=== PATIENT | female | born 1935 | race Caucasian/White ===

== ENCOUNTER 2022-04-04 16:14 | Inpatient (IN) | payer OTHER, MEDICAID ==
[~2022-04-04] VITALS: Ht 149.9 cm; Wt 64.5 kg
[~2022-04-04 16:14] MED LIST: ACYC5OIN; AMITRIPTYLLINE PO; CAPT25TA5; CAPT25TA5 PO; FER325T PO; FLU05NSL; GEMF-19 PO; HYDRCRY2; KLOR CON PO; METO1TAB9; OMEP20TA37 PO; PREMARIN 0.625 MG; [UNRECOGNIZED DRUG - OTHER]
[2022-04-04 17:00] LABS: Basophils # (auto) 0.1 10 ^3/uL (0-0.2); Basophils % (auto) 0.4 % (0.0-2.0); Eosinophils # (auto) 0.1 10 ^3/uL (0-0.8); Eosinophils % (auto) 0.5 % (0.0-7.0); Hematocrit 36.9 % (36.0-46.0); Lymphocytes # (auto) 1.9 10 ^3/uL (0.4-5.4); Lymphocytes % (auto) 15.6 % (10.0-50.0); Mean Corpuscular Hemoglobin 30.5 pg (28.0-32.0); Mean Corpuscular Hgb Conc. 32.4 g/dL (32.0-36.0); Mean Corpuscular Volume 94.3 fL (80.0-100.0); Monocytes # (auto) 0.8 10 ^3/uL (0-1.3); Monocytes % (auto) 6.4 % (0.0-12.0); Neutrophils # (auto) 9.2 10 ^3/uL (1.6-8.6); Neutrophils % (auto) 77.1 % (37.0-80.0); Nucleated Red Blood Cells % 0.1 %; Red Blood Cells 3.92 10^6/uL (4.0-5.20); Red Cell Distribution Width 13.7 % (11.8-14.3)
[2022-04-04 17:20] LABS: Albumin 3.7 g/dL (3.4-5.0); BUN/Creatinine Ratio 31.8; Calcium 9.1 mg/dL (8.5-10.1); Magnesium 2.3 mg/dL (1.6-2.6); Potassium 4.7 mmol/L (3.5-5.1)
[2022-04-04 17:23] LABS: Bilirubin, Total 0.5 mg/dL (0.2-1.0); Total Protein 6.7 g/dL (6.4-8.2)
[2022-04-04] MEDS ORDERED: GLUCAGON HYDROCHLORIDE (RDNA) 1 MG VIAL IV ONE (17:30)
[2022-04-04 20:58] LABS: Urine Bacteria NONE SEEN /hpf (None Seen); Urine Blood Negative /uL (Negative); Urine Specific Gravity 1.009 (1.001-1.035); Urine WBC 3 /hpf (0 - 5)
[2022-04-05] VITALS (31 sets, daily range): BP systolic 114–171; BP diastolic 40–67
[2022-04-05] MEDS ORDERED: ONDANSETRON HCL 4 MG/2 ML VIAL IV PRN (00:15)
[2022-04-05] MEDS ORDERED: MORPHINE SULFATE INJ 2 MG/ml SYRG IV PRN (00:15)
[2022-04-05] MEDS ORDERED: hydrALAZINE HCL 20 MG/ML VL IV PRN (00:15)
[2022-04-05] MEDS ORDERED: NITROGLYCERIN 0.4 MG SL TAB SL PRN (00:15)
[2022-04-05] MEDS ORDERED: GLUCAGON HYDROCHLORIDE (RDNA) 1 MG VIAL IV ONE (09:00)
[2022-04-05] MEDS: TRIAMTERENE/HCTZ 37.5/25 MG CAP/TAB PO SCH ×2 (09:58→10:06)
[2022-04-05] MEDS: ENOXAPARIN SOD 30 MG/0.3 ML SYRINGE SC SCH (10:00)
[2022-04-05 13:18] LABS: Basophils # (auto) 0.1 10 ^3/uL (0-0.2); Basophils % (auto) 0.6 % (0.0-2.0); Eosinophils # (auto) 0 10 ^3/uL (0-0.8); Eosinophils % (auto) 0.2 % (0.0-7.0); Hematocrit 38.8 % (36.0-46.0); Hemoglobin 13.3 g/dL (12.2-16.2); Lymphocytes # (auto) 1.2 10 ^3/uL (0.4-5.4); Lymphocytes % (auto) 11.9 % (10.0-50.0); Mean Corpuscular Hemoglobin 30.9 pg (28.0-32.0); Mean Corpuscular Hgb Conc. 34.2 g/dL (32.0-36.0); Mean Corpuscular Volume 90.3 fL (80.0-100.0); Monocytes # (auto) 0.4 10 ^3/uL (0-1.3); Monocytes % (auto) 3.9 % (0.0-12.0); Neutrophils # (auto) 8.6 10 ^3/uL (1.6-8.6); Neutrophils % (auto) 83.4 % (37.0-80.0); Nucleated Red Blood Cells % 0.1 %; Red Blood Cells 4.29 10^6/uL (4.0-5.20); Red Cell Distribution Width 13.1 % (11.8-14.3); White Blood Cell 10.3 10^3/uL (4.4-10.8)
[2022-04-05 13:36] LABS: BUN/Creatinine Ratio 26.6; Calcium 9.2 mg/dL (8.5-10.1); Magnesium 2.5 mg/dL (1.6-2.6); Potassium 3.9 mmol/L (3.5-5.1)
[2022-04-05] MEDS ORDERED: LIDOCAINE 2%HCL (LOCAL ANESTH.) INJ 10ml MDV ONE (14:06)
[2022-04-05] MEDS: ATORVASTATIN 20 MG TAB PO SCH (21:33)
[2022-04-06] VITALS (46 sets, daily range): BP systolic 110–154; BP diastolic 50–93
[2022-04-06 05:07] LABS: Basophils # (auto) 0 10 ^3/uL (0-0.2); Basophils % (auto) 0.4 % (0.0-2.0); Eosinophils # (auto) 0.1 10 ^3/uL (0-0.8); Eosinophils % (auto) 0.7 % (0.0-7.0); Hemoglobin 12.8 g/dL (12.2-16.2); Lymphocytes # (auto) 1.4 10 ^3/uL (0.4-5.4); Lymphocytes % (auto) 17.7 % (10.0-50.0); Mean Corpuscular Hemoglobin 31.2 pg (28.0-32.0); Mean Corpuscular Hgb Conc. 34.6 g/dL (32.0-36.0); Mean Corpuscular Volume 90.3 fL (80.0-100.0); Monocytes # (auto) 0.6 10 ^3/uL (0-1.3); Monocytes % (auto) 7.9 % (0.0-12.0); Neutrophils # (auto) 5.9 10 ^3/uL (1.6-8.6); Neutrophils % (auto) 73.3 % (37.0-80.0); Nucleated Red Blood Cells % 0.1 %; Red Cell Distribution Width 13.3 % (11.8-14.3)
[2022-04-06 05:22] LABS: Albumin 3.2 g/dL (3.4-5.0); Calcium 8.8 mg/dL (8.5-10.1); Potassium 3.4 mmol/L (3.5-5.1)
[2022-04-06 05:27] LABS: BUN/Creatinine Ratio 21.9; Bilirubin, Total 0.7 mg/dL (0.2-1.0); Total Protein 6.5 g/dL (6.4-8.2)
[2022-04-06] MEDS: ACETAMINOPHEN 325 MG TAB PO PRN ×2 (06:27→16:16)
[2022-04-06] MEDS ORDERED: ACETAMINOPHEN 325 MG TAB PO PRN (09:45)
[2022-04-06] MEDS ORDERED: POTASSIUM EFFERVESENT TAB 25 MEQ PO ONE ×2 (09:45→20:45)
[2022-04-06] MEDS: ENOXAPARIN SOD 30 MG/0.3 ML SYRINGE SC SCH (10:00)
[2022-04-06 10:09] LABS: INR 1.09 (0.9-1.15); Partial Thromboplastin Time 23.9 sec (23.6-33.0)
[2022-04-06] MEDS: TRIAMTERENE/HCTZ 37.5/25 MG CAP/TAB PO SCH ×2 (10:39→10:40)
[2022-04-06] MEDS ORDERED: LIDOCAINE 2%HCL (LOCAL ANESTH.) INJ 10ml MDV ONE (12:49)
[2022-04-06] MEDS ORDERED: fentaNYL CITRATE 100 MCG/2 ML VL ONE (12:53)
[2022-04-06] MEDS ORDERED: MIDAZOLAM HCL 2MG/2ML 2ml VIAL (1mg/ml) ONE (12:53)
[2022-04-06] MEDS ORDERED: VANCOMYCIN 1GM/250ML 250 ML IV ONE (13:14)
[2022-04-06] MEDS ORDERED: ceFAZolin 1GM VL ONE (13:14)
[2022-04-06] MEDS ORDERED: POLYETHYLENE GLYCOL 17 GM PWDR PO PRN (19:15)
[2022-04-06] MEDS ORDERED: BISACODYL 5 MG EC TAB PO PRN (19:15)
[2022-04-06] MEDS: ATORVASTATIN 20 MG TAB PO SCH (21:53)
[2022-04-07] MEDS: CEPHALEXIN 250 MG CAP PO SCH ×3 (00:20→11:06)
[2022-04-07 05:33] VITALS: BP 117/75
[2022-04-07 06:36] LABS: BUN/Creatinine Ratio 25.8; Calcium 8.6 mg/dL (8.5-10.1); Magnesium 1.8 mg/dL (1.6-2.6); Potassium 3.5 mmol/L (3.5-5.1)
[2022-04-07 06:38] LABS: Basophils # (auto) 0 10 ^3/uL (0-0.2); Basophils % (auto) 0.6 % (0.0-2.0); Eosinophils # (auto) 0.1 10 ^3/uL (0-0.8); Hematocrit 38.7 % (36.0-46.0); Hemoglobin 12.9 g/dL (12.2-16.2); Lymphocytes # (auto) 1.4 10 ^3/uL (0.4-5.4); Lymphocytes % (auto) 19.8 % (10.0-50.0); Mean Corpuscular Hemoglobin 30.1 pg (28.0-32.0); Mean Corpuscular Hgb Conc. 33.3 g/dL (32.0-36.0); Mean Corpuscular Volume 90.4 fL (80.0-100.0); Monocytes # (auto) 0.5 10 ^3/uL (0-1.3); Monocytes % (auto) 6.8 % (0.0-12.0); Neutrophils % (auto) 71.8 % (37.0-80.0); Nucleated Red Blood Cells % 0.1 %; Red Blood Cells 4.28 10^6/uL (4.0-5.20); Red Cell Distribution Width 12.9 % (11.8-14.3)
[2022-04-07 09:01] VITALS: BP 130/74
[2022-04-07] MEDS: ENOXAPARIN SOD 30 MG/0.3 ML SYRINGE SC SCH (11:06)
[2022-04-07] MEDS ORDERED: MUPI2OIN2 EACHNOSTRI ×2 (12:29→12:31)
[2022-04-07] MEDS ORDERED: CEPH250C28 PO ×2 (12:29→12:31)
[2022-04-07] MEDS ORDERED: HYDR1TAB97 PO ×2 (12:29→12:31)
[2022-04-07] MEDS ORDERED: TRIA37.56 PO ×2 (12:29→12:31)
[2022-04-07] MEDS ORDERED: MUPIROCIN 2% OINT 15gm or 22gm EACHNOSTRI SCH (12:30)
[2022-04-07 13:00] VITALS: BP 132/73
[2022-04-07 13:52] VITALS: BP 132/73
[2022-04-08] MEDS ORDERED: HYDR1TAB97 PO (09:55)
== END 2022-04-07 15:00 | disposition home or self-care (01) | DRG 243 ==
LOC: ER 16:14 → TELE 04-05 00:14 → DOU IN ICU 04-05 05:41 → TELE-WESTW 04-06 16:40
PROVIDERS: ADMIT Nurse Practitioner; ATTEND Internal Medicine
PROC: 5A1223Z Performance of Cardiac Pacing, Continuous (ICD-10-PCS; 2022-04-05)
PROC: 0JH606Z Insertion of Pacemaker, Dual Chamber into Chest Subcutaneous Tissue and Fascia, Open Approach (ICD-10-PCS; principal; 2022-04-06)
PROC: 02HK3JZ Insertion of Pacemaker Lead into Right Ventricle, Percutaneous Approach (ICD-10-PCS; 2022-04-06)
PROC: 02H63JZ Insertion of Pacemaker Lead into Right Atrium, Percutaneous Approach (ICD-10-PCS; 2022-04-06)
DX: I44.2 Atrioventricular block, complete (principal); N39.0 Urinary tract infection, site not specified; N17.9 Acute kidney failure, unspecified; I10 Essential (primary) hypertension; D64.9 Anemia, unspecified; I49.5 Sick sinus syndrome; K21.9 Gastro-esophageal reflux disease without esophagitis; K59.00 Constipation, unspecified; Z20.822 Contact with and (suspected) exposure to COVID-19
CPT/HCPCS: 36415; 71045; 74176; 80048; 80053; 81001; 83735; 84439; 84443; 84484; 85025; 85610; 85730; 87081; 93005; 93306; 96374; 96376; 99152; 99153; 99291; A4565; C1751; C1785; G0378; J0690; J2001; J2250